=== PATIENT | female | born 1980 ===

== ENCOUNTER 2018-04-13 15:08 | Emergency (ER) | payer OTHER ==
[~2018-04-13] VITALS: Ht 160 cm; Wt 94.3 kg
[2018-04-13 15:48] VITALS: BP 125/67
== END 2018-04-13 16:02 | disposition home or self-care (01) ==
LOC: ER 15:09
DX: M54.2 Cervicalgia (principal); R07.9 Chest pain, unspecified; K21.9 Gastro-esophageal reflux disease without esophagitis; Z91.040 Latex allergy status
CPT/HCPCS: 71045; 93005; 99283; 99284